=== PATIENT | female | born 1960 | race Caucasian/White ===

== ENCOUNTER 2018-11-28 19:21 | Observation (INO) ==
[2018-11-28] MEDS ORDERED: Nitroglycerin 1 INCH/GM PACKET TP ONE (19:25)
[2018-11-28] MEDS ORDERED: Aspirin 81 MG TAB.CHEW PO ONE (19:25)
[2018-11-28] MEDS ORDERED: Ondansetron ODT 4 MG TAB.RAPDIS SL ONE (19:33)
[2018-11-28] MEDS ORDERED: cloNIDine HCl 0.1 MG TABLET PO ONE (19:33)
--- NOTE | 2018-11-28 19:38 | Emergency Department Note ---
Disposition Clinical Impression: Chest pain, Hypertensive urgency Disposition: Admitted As Inpatient Condition: Fair Forms: ED Satisfaction Letter Time of Disposition: 20:21 ( WILL ADMIT) Chest Pain HPI - General Chief Complaint: ED Chest Pain Stated Complaint: chest tightness Time Seen by Provider: 11/28/18 19:25 Source: patient Mode of arrival: ambulatory Limitations: no limitations Vital Signs Reviewed: Yes Nursing Notes Reviewed: Yes - History of Present Illness HPI Narrative: 58-year-old female who presented to the emergency department via private car with complaints of feelings of near fainting nests earlier this morning between 8 and 9 patient reports that she just was not feeling well and she felt quite flushed. 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 She also complains of a severe headache, and again noted that her blood pressure was elevated at home and as a result she came in here for further evaluation. Pt complaint: chest pain Onset (ago): Just [employer] Duration: intermittent Onset: during rest Pain Location: substernal Severity: moderate Severity scale (1-10): 10 Quality: tightness Pain Radiation: none Improves with: nothing Worsens with: exertion Context: recent illness Associated symptoms: Reports: nausea Treatments prior to arrival chest pain: none - Related Data Home Medications Medication Instructions Recorded Confirmed Levothyroxine [Synthroid] 125 mcg PO 0630 03/12/18 11/28/18 Allergies Allergy/AdvReac Type Severity Reaction Status Date / Time hydromorphone [From Dilaudid] AdvReac itching, Verified 04/08/18 14:53 red, hot Constitutional: Denies: fever, chills, weakness, weight change Eyes: Denies: eye pain, eye discharge, vision change ENT ED: Denies: ear pain, throat pain, dental pain, hearing loss, epistaxis, congestion, dysphagia Cardiovascular: Denies: chest pain, palpitations, dyspnea on exertion, edema, syncope Respiratory: Denies: cough, dyspnea, wheezes, hemoptysis, stridor Gastrointestinal: Denies: abdominal pain, nausea, vomiting, diarrhea, constipation, hematemesis, melena, hematochezia Genitourinary: Denies: dysuria, frequency, hematuria, discharge Musculoskeletal: Denies: back pain, neck pain, arthralgia, myalgia Integumentary: Denies: rash, abrasion, lesions Neurological: Denies: headache, weakness, numbness, paresthesias, confusion, abnormal gait, vertigo Psychiatric: Denies: anxiety, depression, suicidal thoughts, homicidal thoughts, auditory hallucinations, visual hallucinations Endocrine: Denies: fatigue Hematological/Lymphatic: Denies: easy bleeding, easy bruising Allergic/Immunologic: Denies: facial swelling, urticaria Chest Pain PMH - Past Medical History Medical history: Reports: asthma, cancer, COPD, thyroid disease Surgical history: Reports: other Psychiatric history: Reports: anxiety, depression, PTSD - Social History Smoking Status: Current every day smoker Alcohol use: Reports: occasionally Drug use: Reports: marijuana Physical Exam - General Limitations: no limitations General appearance: alert, in no apparent distress - Head Head exam: atraumatic, normocephalic, normal inspection - Eye Eye exam: Present: normal appearance, PERRL, EOMI - Expanded Eye Exam Pupils: Left: reactive - ENT ENT exam: normal exam, normal oropharynx, mucous membranes moist - Expanded ENT Exam External ear exam: Present: normal external inspection Mouth exam: Present: normal external inspection Teeth exam: Present: normal inspection Throat exam: Present: normal inspection - Neck Neck exam: Present: normal inspection, full ROM, trachea midline - Chest Chest inspection: Present: normal inspection, symmetric chest wall rise - Respiratory Respiratory exam: Present: normal lung sounds bilaterally - Cardiovascular Cardiovascular exam: Present: regular rate, normal rhythm, normal heart sounds - Abdominal Exam Abdominal exam: Present: soft, Non-Tender. Absent: tenderness, distention, guarding, rebound, rigidity - Extremities Exam Extremities exam: Present: normal inspection, full ROM. Absent: tenderness, pedal edema - Expanded Upper Extremity Exam Shoulder exam: Present: normal inspection, full ROM Arm exam: Present: normal inspection, full ROM Elbow exam: Present: normal inspection, full ROM Forearm/Wrist exam: Present: normal inspection, full ROM Hand exam: Present: normal inspection, full ROM Vascular exam: Normal: capillary refill, radial pulse - Expanded Lower Extremity Exam Hip/Pelvis exam: Present: normal inspection, full ROM Upper leg exam: Present: normal inspection, full ROM Knee exam: Present: normal inspection, full ROM Lower leg exam: Present: normal inspection, full ROM Ankle exam: Present: normal inspection, full ROM Foot/toe exam: Present: normal inspection, full ROM Neurovascular/Tendon exam: Absent: motor deficit, sensory deficit, tendon deficit - Back Exam Back exam: Present: normal inspection, full ROM. Absent: tenderness - Neurological Exam Neurological exam: Present: alert, oriented X3 - Expanded Neurological Exam Patient oriented to: Present: person, place, time Coma Scale Eye Opening: Spontaneous Coma Scale Motor Response: Obeys Commands Coma Scale Verbal Response: Oriented Coma Scale Total: 15 - Psychiatric Psychiatric exam: Present: normal affect, normal mood - Skin Skin exam: Present: warm, dry, intact, normal color Course Vital Signs Temperature 97.6 F 11/28/18 19:22 Pulse Rate 72 11/28/18 19:22 Respiratory Rate 18 11/28/18 19:22 Blood Pressure 167/88 11/28/18 19:22 O2 Sat by Pulse Oximetry 99 11/28/18 19:22 Temperature 97.6 F 11/28/18 19:22 Pulse Rate 69 11/28/18 20:09 Respiratory Rate 16 11/28/18 20:09 Blood Pressure 146/73 11/28/18 20:09 O2 Sat by Pulse Oximetry 98 11/28/18 20:09 Oxygen Delivery Oxygen Delivery Room Air Chest Pain - Differential Diagnosis Likely: stable angina, atypical chest pain, costalchondritis, chest pain - Medical Records Medical records reviewed: Yes I reviewed the patient's medical records. - Lab Data Lab results reviewed: Yes I reviewed the patient's lab results. Result diagrams: 11/28/18 19:34 11/28/18 19:34 Lab Results 11/28/18 11/28/18 11/28/18 Range/Units 19:34 19:34 19:34 WBC 6.8 (4.3-11.1) K/mcL RBC 4.60 (3.82-4.97) M/mcL Hgb 15.6 H (11.5-15.4) g/dL Hct 44.0 (35.3-44.9) % MCV 95.7 (83.0-100.0) fL MCH 33.9 H (28.0-33.3) pg MCHC 35.5 (31.6-35.5) g/dL RDW 13.0 (11.5-14.5) % Plt Count 277 (140-400) K/mcL MPV 9.3 L (9.4-12.4) fL Immature Gran % 0.4 (0-4) % Seg Neutrophils % 57.1 % Lymphocytes % 32.1 % Monocytes % 6.6 % Eosinophils % 2.9 % Basophils % 0.9 % Neutrophils # 3.9 (1.6-8.9) K/mcL Lymphocytes # 2.2 (0.6-4.6) K/mcL Monocytes # 0.5 (0.0-1.3) K/mcL Eosinophils # 0.2 (0.0-0.6) K/mcL Basophils # 0.1 (0.0-0.2) K/mcL PT 10.4 (9.4-12.1) Seconds INR 0.9 APTT 39.8 H (26.0-36.0) Seconds Sodium (136-145) mEq/L Potassium (3.5-5.1) mEq/L Chloride (98-107) mEq/L Carbon Dioxide (23-29) mEq/L BUN (6-20) mg/dL Creatinine (0.60-1.20) mg/dL Est GFR ( Amer) (> 60) Est GFR (Non-Af Amer) (> 60) BUN/Creatinine Ratio (6-26) Glucose (70-105) mg/dL Calculated Osmolality (280-300) Calcium (8.6-10.3) mg/dL Troponin I (< 0.04) ng/mL B-Natriuretic Peptide 27 (Less than 100) pg/mL 11/28/18 Range/Units 19:34 WBC (4.3-11.1) K/mcL RBC (3.82-4.97) M/mcL Hgb (11.5-15.4) g/dL Hct (35.3-44.9) % MCV (83.0-100.0) fL MCH (28.0-33.3) pg MCHC (31.6-35.5) g/dL RDW (11.5-14.5) % Plt Count (140-400) K/mcL MPV (9.4-12.4) fL Immature Gran % (0-4) % Seg Neutrophils % % Lymphocytes % % Monocytes % % Eosinophils % % Basophils % % Neutrophils # (1.6-8.9) K/mcL Lymphocytes # (0.6-4.6) K/mcL Monocytes # (0.0-1.3) K/mcL Eosinophils # (0.0-0.6) K/mcL Basophils # (0.0-0.2) K/mcL PT (9.4-12.1) Seconds INR APTT (26.0-36.0) Seconds Sodium 133 L (136-145) mEq/L Potassium 4.0 (3.5-5.1) mEq/L Chloride 99 (98-107) mEq/L Carbon Dioxide 25 (23-29) mEq/L BUN 9 (6-20) mg/dL Creatinine 0.72 (0.60-1.20) mg/dL Est GFR ( Amer) > 60 (> 60) Est GFR (Non-Af Amer) > 60 (> 60) BUN/Creatinine Ratio 13 (6-26) Glucose 110 H (70-105) mg/dL Calculated Osmolality 275 L (280-300) Calcium 9.8 (8.6-10.3) mg/dL Troponin I < 0.03 (< 0.04) ng/mL B-Natriuretic Peptide (Less than 100) pg/mL - Radiology Data Radiology results reviewed: Yes I reviewed the patient's radiology results. Chest x-ray per radiology reading shows no acute process CT of head without contrast per radiology reading shows no acute abnormality. - EKG Data EKG attestation: Yes I reviewed and interpreted this EKG. EKG results narrative: Asians EKG is normal sinus rhythm with rate of 73 no evidence of ischemia EKG shows normal: sinus rhythm Rate: normal Rhythm: NSR [place]/QRS: normal
[2018-11-28 19:41] LABS: Basophils # 0.1 K/mcL (0.0-0.2); Basophils % 0.9 %; Eosinophils # 0.2 K/mcL (0.0-0.6); Eosinophils % 2.9 %; Hemoglobin 15.6 g/dL (11.5-15.4); Immature Granulocytes % 0.4 % (0-4); Lymphocytes # 2.2 K/mcL (0.6-4.6); Lymphocytes % 32.1 %; Mean Corpuscular HGB Conc 35.5 g/dL (31.6-35.5); Mean Corpuscular Hemoglobin 33.9 pg (28.0-33.3); Mean Corpuscular Volume 95.7 fL (83.0-100.0); Mean Platelet Volume 9.3 fL (9.4-12.4); Monocytes # 0.5 K/mcL (0.0-1.3); Monocytes % 6.6 %; Neutrophils # 3.9 K/mcL (1.6-8.9); Platelet Count 277 K/mcL (140-400); Segmented Neutrophils % 57.1 %
[2018-11-28 19:48] LABS: INR 0.9; Prothrombin Time 10.4 Seconds (9.4-12.1)
[2018-11-28 19:50] LABS: Activated Partial Thrombo Time 39.8 Seconds (26.0-36.0)
[2018-11-28 19:54] LABS: BUN/Creatinine Ratio 13 (6-26); Blood Urea Nitrogen 9 mg/dL (6-20); Calcium 9.8 mg/dL (8.6-10.3); Carbon Dioxide 25 mEq/L (23-29); Chloride 99 mEq/L (98-107); Glucose 110 mg/dL (70-105); Osmolality,Calculated 275 (280-300); Sodium 133 mEq/L (136-145); eGFR For Non-African Americans > 60 (> 60)
[2018-11-28 19:59] LABS: Troponin I < 0.03 ng/mL (< 0.04)
[2018-11-29 07:04] VITALS: BP 116/72
[2018-11-29] MEDS ORDERED: Ibuprofen 400 MG TABLET PO PRN (11:06)
--- NOTE | 2018-12-01 08:20 | Electrocardiograph Report ---
[place] [id number] Test Date: 2018-11-28 Pat Name: Aimee Watson Department: EDP-14 Room: [facility] Gender: F Marketing Sales Supervisor: : 1960 Requested By: Lachelle Sifuentes Order Number: [id number] Reading MD: Nithin Alexandra Measurements Intervals [place] Rate: 73 P: 61 AK: 165 QRS: 62 QRSD: 87 T: 76 QT: 375 QTc: 414 Interpretive Statements Sinus rhythm Electronically Signed On 12-01-2018 8:18:20 EST by Nithin Alexandra
--- NOTE | 2018-12-11 15:55 | Internal Med Progress Note ---
Date of Encounter: 12/11/18 Time of Encounter: 15:50 - Subjective Interval history: Patient was admitted through emergency room. She left AMA the morning of November 29 before I saw her. - Constitutional Vitals: Temp Pulse Resp BP Pulse Ox 97.7 F 56 17 116/72 96 11/29/18 06:59 11/29/18 06:59 11/29/18 06:59 11/29/18 06:59 11/29/18 06:59 Internal Medicine: Result - Labs CBC & Chem 7: 11/28/18 19:34 11/28/18 19:34 - ABG Interpretation ABG results: PT/INR, D-dimer PT 10.4 Seconds (9.4-12.1) 11/28/18 19:34 Consult Discharge Plan - Plan Referrals: Janie Chiu MD [Primary Care Provider] - 1 week
== END 2018-11-29 11:33 | disposition left against medical advice (07) ==
LOC: INPPIK 19:21 → EMEROOPIK 19:21 → INPPIK 21:23
PROVIDERS: ADMIT Internal Medicine; ATTEND Internal Medicine